=== PATIENT | female | born 1995 | race Caucasian/White ===

== ENCOUNTER 2016-09-26 07:43 | Inpatient (IN) | payer OTHER ==
[~2016-09-26] VITALS: Ht 154.9 cm; Wt 89.0 kg
[2016-09-26] VITALS (17 sets, daily range): BP systolic 102–135; BP diastolic 56–81
[2016-09-26] MEDS ORDERED: CLAR10TA13 PO (08:00)
[2016-09-26] MEDS ORDERED: CLAR5CHW9 PO (08:00)
[2016-09-26] MEDS ORDERED: PRENTAB55 PO (08:00)
[2016-09-26] MEDS ORDERED: NEXI20CA PO (08:00)
[2016-09-26] MEDS ORDERED: LR 1,000 ML IV SCH (09:33)
[2016-09-26] MEDS ORDERED: OXYTOCIN DRIP 30 UNITS in APPROPRIATE DILUENT 1 EA IV SCH (09:45)
[2016-09-26 09:54] LABS: MEAN CORPUSCULAR HGB CONC 32.3 g/dl (32.0-36.5); MEAN CORPUSCULAR VOLUME 86.9 fl (80.0-96.0); RED CELL DISTRIBUTION WIDTH 13.8 % (11.5-14.5); WHITE BLOOD COUNT 9.2 K/mm3 (4.0-10.0)
[2016-09-26] MEDS ORDERED: ACETAMINOPHEN 500 MG TAB PO ONE (13:30)
[2016-09-26] MEDS: LR 1,000 ML IV SCH ×2 (13:31→17:53)
[2016-09-26] MEDS ORDERED: ACETAMINOPHEN TAB 650MG DOSE (2X325MG) PO ONE (19:30)
[2016-09-26] MEDS ORDERED: DOCUSATE SODIUM 100 MG CAP PO PRN (20:00)
[2016-09-26] MEDS ORDERED: METHYLERGONOVINE MALEATE 0.2 MG TAB PO PRN (20:00)
[2016-09-26] MEDS ORDERED: DIBUCAINE 1% OINTMENT 30GM TOP PRN (20:00)
[2016-09-26] MEDS ORDERED: MEASLES,MUMPS,RUBELLA VACCINE INJ (MMR-II) (90707) SC SCH (20:00)
[2016-09-26] MEDS ORDERED: METOCLOPRAMIDE INJ 10MG/2ML VIAL (J2765) IV PRN (20:00)
[2016-09-26] MEDS ORDERED: ONDANSETRON 4MG/2ML VIAL (J2405) IV PRN (20:00)
[2016-09-26] MEDS ORDERED: RHOGAM 300 MCG (1500 IU) INJ (J2790) IM SCH (20:00)
[2016-09-27] MEDS: IBUPROFEN 800 MG TAB PO PRN ×2 (00:59→10:08)
[2016-09-27] MEDS: ACETAMINOPHEN 500 MG TAB PO PRN ×2 (01:10→17:53)
[2016-09-27 06:00] VITALS: BP 127/73
[2016-09-27] MEDS: PRENATAL VITAMIN TAB PO SCH (08:25)
[2016-09-27] MEDS: LR 1,000 ML IV SCH ×3 (08:25→17:33)
[2016-09-27 18:04] VITALS: BP 121/77
[2016-09-28] MEDS: IBUPROFEN 800 MG TAB PO PRN (01:27)
[2016-09-28 01:38] VITALS: BP 117/78
[2016-09-28 05:32] VITALS: BP 122/61
[2016-09-28] MEDS: PRENATAL VITAMIN TAB PO SCH (08:34)
[2016-09-28] MEDS ORDERED: ACET50TA PO (08:36)
[2016-09-28] MEDS ORDERED: IBUP-1114 PO (08:38)
[2016-09-28] MEDS ORDERED: COLA100C PO (08:39)
[2016-09-28 10:00] VITALS: BP 123/76
== END 2016-09-28 13:20 | disposition home or self-care (01) | DRG 775 ==
LOC: M LDO 07:43 → M LDI 09:26 → M OBS 21:48
PROVIDERS: ADMIT Student in an Organized Health Care Education/Training Program; ATTEND Student in an Organized Health Care Education/Training Program
PROC: 10E0XZZ Delivery of Products of Conception, External Approach (ICD-10-PCS; principal; 2016-09-26)
DX: O99.214 Obesity complicating childbirth (principal); Z37.0 Single live birth; E66.9 Obesity, unspecified; Z3A.38 38 weeks gestation of pregnancy